=== PATIENT | male | born 1990 | race African-American/Black ===

== ENCOUNTER 2021-06-27 20:26 | Emergency (ER) | payer MEDICAID, SELFPAY ==
[2021-06-27 20:35] VITALS: BP 156/97; PULSE 71; RESP 16; TEMP 36.1; O2SAT 100
[2021-06-27 20:40] VITALS: BP 166/96; PULSE 64; RESP 18; TEMP 37.6; O2SAT 99
[2021-06-27 20:56] LABS: Basophils Percent Auto 0.3 % (0.2-1.2); Eosinophils Percent Auto 0.6 % (0-4.4); Hematocrit 42.6 % (42.0-52.0); Hemoglobin 14.6 g/dL (14.0-18.0); Immature Granulocyte Absolute 0.01 K/mm3 (0.00-0.031); Immature Granulocyte Percent A 0.1 % (0-0.5); Lymphocytes Absolute Auto 1.53 K/mm3 (0.9-3.2); Lymphocytes Percent Auto 22.5 % (18.3-44.2); Mean Corpuscular HGB Conc 34.3 g/dl (32-36); Mean Corpuscular Hemoglobin 26.7 pg (26-34); Mean Corpuscular Volume 77.9 fl (80-100); Mean Platelet Volume 9.7 fl (7.4-10.4); Monocytes Absolute Auto 0.5 K/mm3 (0.1-0.6); Monocytes Percent Auto 7.9 % (2.6-8.5); Neutrophils Absolute Auto 4.7 K/mm3 (1.3-6.7); Neutrophils Percent Auto 68.6 % (45.5-73.1); Platelet Count Result 279 k/mm3 (150-375); Red Blood Count 5.47 M/mm3 (4.6-6.20); Red Cell Distribution Width 13.8 % (11.5-14.5); White Blood Count 6.8 K/mm3 (4.5-10.0)
[2021-06-27] MEDS: Please add drug allergy info to patient profile. 1 EACH XX (20:59)
[2021-06-27] MEDS: ONDANSETRON INJ 4 MG/2 ML VIAL IV PUSH (20:59)
[2021-06-27] MEDS: SODIUM CHLORIDE 0.9% IV 1,000 ML 999 ML IV CONT (20:59)
[2021-06-27 21:04] LABS: Add Urine Microscopic? YES; Appearance Urine Clear (Clear); Bilirubin Urine Negative (Negative); Blood Urine Negative (Negative); Color Urine Straw (Yellow); Glucose Urine UA Negative (Negative); Ketones Urine Trace mg/dL (Negative); Leukocyte Esterase Ur Negative LEU/UL (Negative); Mucus Urine Rare /lpf; Nitrate Urine Negative (Negative); Protein Urine Negative (Negative); RBC Urine 0-2 /hpf (0-2); Squamous Epithelial Cell Urine Rare /hpf (Few); Urobilinogen Urine Negative mg/dL (<2.0); WBC Urine 0-3 /hpf
[2021-06-27 21:07] LABS: Specific Grav Ur 1.003 (1.001-1.035)
[2021-06-27 21:09] LABS: Alanine Aminotransferase 26 U/L (4-50); Albumin Level 4.3 g/dL (3.5-5.1); Alkaline Phosphatase 65 U/L (38-126); Anion Gap 5 mmol/L (8-16); Aspartate Amino Transferase 29 U/L (17-59); Bilirubin,Total 0.9 mg/dL (0.2-1.3); Blood Urea Nitrogen 10 mg/dL (9-20); Calcium 9.5 mg/dL (8.4-10.2); Carbon Dioxide 28 mmol/L (22-30); Chloride 105 mmol/L (98-107); Estimated CRCL calculation 129 ml/min; Estimated Glomerular Filt Rate > 60; Glucose 98 mg/dL (65-110); Lipase 29 U/L (23-300); Potassium 3.4 mmol/L (3.4-5.0); Sodium 138 mmol/L (137-145)
[2021-06-27 21:22] VITALS: BP 153/95; PULSE 60; RESP 18; O2SAT 99
--- NOTE | 2021-06-27 21:28 | ED.NAVMDI ---
HPI - Nausea/Vomiting/Diarrhea General Chief complaint: Nausea/Vomiting/Diarrhea Stated complaint: nausea/vomiting Time Seen by Provider: 06/27/21 20:43 Source: patient Mode of arrival: ambulatory Limitations: no limitations History of Present Illness HPI Narrative: 30-year-old with no major medical problems here with complaints of lower abdominal pain associated with nausea and vomiting for last 3 to 4 days. He denies any fever or chills. Denies any diarrhea. He states he has been eating fish for last 3 to 4 days. MD elicited complaint: nausea and vomiting Onset (ago): day(s) (4) Description of vomiting: watery and bilious Associated nausea: Yes Associated abdominal pain: Yes Location of pain: other (Lower abdominal pain) Pain consistency: intermittent Severity: mild Quality: aching Exacerbating factors: none Relieving factors: none Related Data Allergies Allergy/AdvReac Type Severity Reaction Status Date / Time No Known Allergies Allergy Verified 06/27/21 20:58 Review of Systems Review of Systems: All systems reviewed & are unremarkable except as noted in HPI and below Constitutional: Constitutional: Reports no additional constitutional complaints Eyes: Eyes: Reports no additional eye complaints ENT: Reports system reviewed and no additional complaints, except as documented Cardiovascular: Cardiovascular: Reports no additional cardiovascular complaints Respiratory: Respiratory: Reports no additional respiratory complaints Gastrointestinal: Gastrointestinal: Reports as per HPI Musculoskeletal: Musculoskeletal: Reports no additional musculoskeletal complaints Integumentary/Breasts: Skin/Breast: Reports system reviewed and no additional complaints, except as docu Exam Narrative: GENERAL: Well-appearing, well-nourished, and in no acute distress. HEAD: Normocephalic, atraumatic. EYES: PERRLA and EOMI.. NECK: Supple. CHEST: Clear to auscultation. No respiratory distress. HEART: Regular rate and rhythm. No murmur heard. Normal peripheral pulses. ABDOMEN: Soft, nontender, nondistended, normal active bowel sounds. EXTREMITIES: Normal range of motion. No edema. SKIN: Warm, dry, no rash. NEURO: No focal deficits. Alert and oriented x3. PSYCH: Normal mood and affect. Course Course Emergency Course: Patient feeling much better after IV fluid and Zofran. Informed him about his lab work. Advised him to take Zofran as needed drink plenty of fluids. Follow-up with his primary doctor. Vital Signs Vital signs: Vital Signs Temperature 36.1 C L 06/27/21 20:35 Pulse Rate 71 06/27/21 20:35 Respiratory Rate 16 06/27/21 20:35 Blood Pressure 156/97 H 06/27/21 20:35 Pulse Oximetry 100 06/27/21 20:35 Temperature 37.6 C 06/27/21 20:40 Pulse Rate 60 06/27/21 21:22 Respiratory Rate 18 06/27/21 21:22 Blood Pressure 153/95 H 06/27/21 21:22 Pulse Oximetry 99 06/27/21 21:22 MDM - Nausea/Vomiting/Diarrhea Differential Diagnosis Differential diagnosis: Likely food poisoning, gastroenteritis and dehydration Medical Records Attestation: I reviewed the patient's medical records. Lab Data Attestation: I reviewed the patient's lab results. Result diagrams: 06/27/21 20:50 06/27/21 20:50 Labs: Lab Results 06/27/21 06/27/21 06/27/21 Range/Units 20:50 20:50 20:56 WBC 6.8 (4.5-10.0) K/mm3 RBC 5.47 (4.6-6.20) M/mm3 Hgb 14.6 (14.0-18.0) g/dL Hct 42.6 (42.0-52.0) % MCV 77.9 L (80-100) fl MCH 26.7 (26-34) pg MCHC 34.3 (32-36) g/dl RDW 13.8 (11.5-14.5) % Plt Count 279 (150-375) k/mm3 MPV 9.7 (7.4-10.4) fl Immature Gran % (Auto) 0.1 (0-0.5) % Neut % (Auto) 68.6 (45.5-73.1) % Lymph % (Auto) 22.5 (18.3-44.2) % [place] % (Auto) 7.9 (2.6-8.5) % Eos % (Auto) 0.6 (0-4.4) % Baso % (Auto) 0.3 (0.2-1.2) % Lymph # (Auto) 1.53 (0.9-3.2) K/mm3 [place] # (Auto) 0.5 (0.1-0.6) K/mm3 Eos # (Auto)
== END 2021-06-27 21:46 | disposition home or self-care (01) ==
PROVIDERS: Emergency Provider Family Medicine
DX: R11.2 Nausea with vomiting, unspecified (principal)
CPT/HCPCS: 36415; 80053; 81001; 83690; 85025; 96374; 99284; J2405; J7030

== ENCOUNTER 2025-05-26 18:37 | Emergency (ER) | payer MEDICAID, OTHER, SELFPAY ==
[2025-05-26] VITALS (11 sets, daily range): BP systolic 146–151; BP diastolic 104–111; PULSE 54–64; RESP 11–18; TEMP 36.6; O2SAT 98–100
--- NOTE | 2025-05-26 20:30 | ECG_ITS ---
Test Date: 2025-05-26 20:55:05 Measurements Intervals [place] Rate: 58 P: 71 HI: 165 QRS: 79 QRSD: 91 T: 60 QT: 365 QTc: 359 Interpretive Statements SINUS BRADYCARDIA CANNOT R/O SEPTAL INFARCT, AGE INDETERMINATE ST ELEVATION IN ANTEROLAT/INF LEADS- PROBABLY EARLY REPOLARIZATION ABNORMALITY BASELINE ARTIFACT- I ABNORMAL ECG No previous ECG available for comparison Electronically Signed On 05-27-2025 06:27:57 CDT by Geovanni Zepeda D.O.
[2025-05-26 21:03] LABS: Hematocrit 40.9 % (42.0-52.0); Hemoglobin 13.4 g/dL (14.0-18.0); Immature Granulocyte Percent A 0.2 % (0-0.5); Lymphocytes Absolute Auto 1.42 K/mm3 (0.9-3.2); Mean Corpuscular HGB Conc 32.8 g/dl (32-36); Mean Corpuscular Hemoglobin 26.2 pg (26-34); Mean Corpuscular Volume 79.9 fl (80-100); Nucleated Red Blood Cells Absolute Auto 0.000 K/mm3 (0.0-0.012); Nucleated Red Blood Cells Perc 0.0 % (0.0-0.2); Platelet Count Result 232 k/mm3 (150-375); Red Blood Count 5.12 M/mm3 (4.6-6.20); White Blood Count 5.9 K/mm3 (4.5-10.0)
[2025-05-26 21:06] LABS: Add Urine Microscopic? NO; Appearance Urine Clear (Clear); Glucose Urine UA Negative (Negative); Leukocyte Esterase Ur Negative LEU/UL (Negative); Nitrate Urine Negative (Negative); Specific Grav Ur 1.018 (1.001-1.035)
[2025-05-26 21:17] LABS: INR 1.0; Prothrombin Time 13.4 Seconds (11.1-14.7)
[2025-05-26 21:18] LABS: Partial Thromboplastin Time 33.3 Seconds (22.3-36.8)
--- NOTE | 2025-05-26 21:22 | ECG_ITS ---
Test Date: 2025-05-26 21:22:30 Measurements Intervals [place] Rate: 53 P: 70 HI: 170 QRS: 76 QRSD: 93 T: 60 QT: 372 QTc: 351 Interpretive Statements SINUS BRADYCARDIA ST ELEVATION IN ANTEROLAT/INF LEADS- PROBABLY EARLY REPOLARIZATION BORDERLINE ECG Compared to ECG 05/26/2025 20:55:05 NO SIGNIFICANT CHANGE Electronically Signed On 05-27-2025 10:12:11 CDT by Geovanni Zepeda D.O.
[2025-05-26 21:28] LABS: Alanine Aminotransferase 24 U/L (6-50); Albumin Level 4.3 g/dL (3.5-5.1); Alkaline Phosphatase 78 U/L (38-126); Anion Gap 5 mmol/L (4-12); Aspartate Amino Transferase 34 U/L (17-59); Bilirubin,Total 0.6 mg/dL (0.2-1.3); Blood Urea Nitrogen 8 mg/dL (9-20); Calcium 9.3 mg/dL (8.4-10.2); Carbon Dioxide 26 mmol/L (22-30); Chloride 105 mmol/L (98-107); Estimated CRCL calculation 143 ml/min; Estimated Glomerular Filt Rate > 60; Glucose 97 mg/dL (65-110); Potassium 4.0 mmol/L (3.4-5.0); Sodium 136 mmol/L (137-145); Total Protein 7.4 g/dL (6.3-8.2)
[2025-05-26 21:39] LABS: Troponin I < 0.012 ng/mL (0.000-0.034)
[2025-05-26] MEDS: SODIUM CHLORIDE 0.9% IV 1,000 ML 999 ML IV CONT ×2 (22:16)
--- NOTE | 2025-05-26 22:16 | ED.DIZZY ---
HPI - Dizziness General Chief Complaint: Dizziness Stated Complaint: dizziness, hot flashes Time Seen by Provider: 05/26/25 21:36 History of Present Illness HPI Narrative: 34-year-old male with no pertinent past medical history presenting to the emergency department for evaluation of lightheadedness and dizziness. States he has been having intermittent symptoms for ?quite some time ?. Never got checked out. States he previously has been evaluated by wine bottle inspector and cleared from any cardiac anomalies after he fainted and had unexplained syncope about 10 years ago. Denies any new syncope or recurrence of those symptoms. States he had a headache that now resolved. No nausea, vomiting, fever, chills, vision changes, chest pain, shortness a breath. States he mostly just feels run down and feels like he could pass out if he gets up suddenly. Ambulatory with a steady gait. No generalized or focal weakness or sensory changes. Does not have a PCP. Related Data Allergies Allergy/AdvReac Type Severity Reaction Status Date / Time No Known Allergies Allergy Verified 05/26/25 18:38 Review of Systems Review of Systems: As reviewed above in HPI Exam Narrative: GENERAL: [Well-appearing, well-nourished, and in no acute distress.] HEAD: [Normocephalic, atraumatic.] EYES: [PERRLA and EOMI.] ENT: Nares clear, no rhinorrhea or epistaxis. Mucous membranes moist. NECK: Supple. CHEST: [Clear to auscultation. No respiratory distress.] HEART: [Regular rate and rhythm]. No murmur heard. [Normal peripheral pulses.] ABDOMEN: [Soft, nondistended], [nontender], [No rigidity or guarding] EXTREMITIES: Normal range of motion. [No edema.] SKIN: Warm, dry, no rash. NEURO: [No focal deficits]. Alert and oriented [x3.] PSYCH: [Normal mood and affect.] Course Vital Signs Vital signs: Vital Signs Temperature 36.6 C 05/26/25 18:51 Pulse Rate 64 05/26/25 18:51 Respiratory Rate 16 05/26/25 18:51 Blood Pressure 150/109 H 05/26/25 18:51 Pulse Oximetry 100 05/26/25 18:51 Oxygen Delivery Room Air 05/26/25 18:51 Temperature 36.6 C 05/26/25 18:51 Pulse Rate 60 10/16/25 22:17 Respiratory Rate 14 05/26/25 22:17 Blood Pressure 146/104 H 05/26/25 20:46 Pulse Oximetry 100 05/26/25 22:17 Oxygen Delivery Room Air 05/26/25 22:17 MDM - Dizziness MDM Narrative Medical decision making narrative: 34-year-old male with no pertinent past medical history presenting to the emergency department for evaluation of lightheadedness and dizziness. States he has been having intermittent symptoms for ?quite some time ?. Never got checked out. States he previously has been evaluated by wine bottle inspector and cleared from any cardiac anomalies after he fainted and had unexplained syncope about 10 years ago. Denies any new syncope or recurrence of those symptoms. States he had a headache that now resolved. No nausea, vomiting, fever, chills, vision changes, chest pain, shortness a breath. States he mostly just feels run down and feels like he could pass out if he gets up suddenly. Ambulatory with a steady gait. No generalized or focal weakness or sensory changes. Does not have a PCP. Patient is overall very well-appearing not any acute distress. Mildly elevated blood pressure, no tachycardia, fever, hypoxemia. Unremarkable neurological and neurovascular assessment. Strong symmetric pulses throughout. Clear breath sounds throughout. Normal neurological status. Patient's vague constellation symptoms could be numerous things including dehydration, electrolyte disturbances, thyroid issues, less likely cardiac anomalies. Broad workup ordered including EKG chest x-ray CBC CMP TSH. Patient placed on cardiac monitoring and he is given fluids. Laboratory studies showed no leukocytosis or significant anemia but is mildly low with a mildly low MCV which could be a sign of iron deficiency.. Normal platelet count. Normal coag studies. Mildly low sodium of 136. Normal electrolytes otherwise. Normal creatinine normal glucose. Normal LFTs. Negative troponin. Normal TSH. EKG shows J-point elevations diffusely consistent with benign early repolarization. No chest pain shortness a breath or anginal equivalents noted. Patient hydrated with fluids and discharged home with a PCP referral and return precautions. Medical Records Attestation: I reviewed the patient's medical records. Lab Data Attestation: I reviewed the patient's lab results. 05/26/25 20:49 05/26/25 20:49 Labs: Lab Results 05/26/25 Range/Units 20:49 WBC 5.9 (4.5-10.0) K/mm3 RBC 5.12 (4.6-6.20) M/mm3 Hgb 13.4 L (14.0-18.0) g/dL Hct 40.9 L (42.0-52.0) % MCV 79.9 L (80-100) fl MCH 26.2 (26-34) pg MCHC 32.8 (32-36) g/dl RDW 14.9 H (11.5-14.5) % Plt Count 232 (150-375) k/mm3 MPV 9.4 (7.4-10.4) fl Immature Gran % (Auto) 0.2 (0-0.5) % Neut % (Auto) 66.4 (45.5-73.1) % Lymph % (Auto) 24.1 (18.3-44.2) % [place] % (Auto) 7.3 (2.6-8.5) % Eos % (Auto) 1.5 (0-4.4) % Baso % (Auto) 0.5 (0.2-1.2) % Lymph # (Auto) 1.42 (0.9-3.2) K/mm3 [place] # (Auto) 0.4 (0.1-0.6) K/mm3 Eos # (Auto) 0.1 (0-0.3) K/mm3 Baso # (Auto) 0.0 (0.0-0.1) K/mm3 Abs Immat Gran (auto) 0.01 (0.00-0.031) K/mm3 Absolute Neuts (auto) 3.9 (1.3-6.7) K/mm3 Absolute Nucleated RBC 0.000 (0.0-0.012) K/mm3 Nucleated RBC % 0.0 (0.0-0.2) % PT 13.4 (11.1-14.7) Seconds INR 1.0 APTT 33.3 (22.3-36.8) Seconds Sodium 136 L (137-145) mmol/L Potassium 4.0 (3.4-5.0) mmol/L Chloride 105 (98-107) mmol/L Carbon Dioxide 26 (22-30) mmol/L Anion Gap 5 (4-12) mmol/L BUN 8 L (9-20) mg/dL Creatinine 0.80 (0.7-1.3) mg/dL Estim Creat Clear Calc 143 ml/min Estimated GFR > 60 (59 - ) Glucose 97 (65-110) mg/dL Calcium 9.3 (8.4-10.2) mg/dL Total Bilirubin 0.6 (0.2-1.3) mg/dL AST 34 (17-59) U/L ALT 24 (6-50) U/L Alkaline Phosphatase 78 (38-126) U/L Troponin I < 0.012 (0.000-0.034) ng/mL Total Protein 7.4 (6.3-8.2) g/dL Albumin 4.3 (3.5-5.1) g/dL TSH (Reflex) 2.110 (0.465-4.68) uIU/mL Urine Color Yellow (Yellow) Urine Appearance Clear (Clear) Urine pH 7.5 (5.0-9.0) Ur Specific [place] 1.018 (1.001-1.035) Urine Protein Negative (Negative) mg/dL Urine Glucose (UA) Negative (Negative) mg/dL Urine Ketones Negative (Negative) mg/dL Ur Blood (Man) Negative (Negative) Urine Nitrate Negative (Negative) Urine Bilirubin Negative (Negative) Urine Urobilinogen 1.0 (<2.0) mg/dL Leukocyte Esterase Rfl Negative (Negative) ASUNCION/UL Discharge Plan Discharge Clinical Impression: Mild anemia, Mild dehydration Patient Disposition: Home Condition: Stable Instructions: Antibiotic Form, Dizziness (ED), Anemia (ED) Additional Instructions: Your workup today shows a very mild level of anemia which could be a sign of iron deficiency as your other laboratory studies are also reassuring. You do have any mildly low sodium consistent with dehydration. We have given the fluid hydration here. Follow-up with a primary care provider for further workup and treatment options. Return with any emergent concerns. Patient Language: [place] Prescriptions: No Action ondansetron 4 mg tablet,disintegrating 4 mg PO Q6-8H PRN (Reason: nausea and vomiting) Qty: 14 0RF Follow-up/Referrals: PHYSICIAN,CONTENT PRODUCTION SPECIALIST [Primary Care Provider, Internal Medicine] Josie Sarah DO [Physician, Family Practice] - 1 Week Referral Note: PCP follow-up, anemia Time of Disposition: 23:20
[2025-05-26 22:56] LABS: Thyroid Stimulating Hormone Reflex 2.110 uIU/mL (0.465-4.68)
[2025-05-27 00:39] VITALS: BP 140/102; PULSE 58; RESP 16; TEMP 36.4; O2SAT 99
== END 2025-05-27 00:41 | disposition home or self-care (01) ==
PROVIDERS: Emergency Provider Student in an Organized Health Care Education/Training Program
DX: D64.9 Anemia, unspecified (principal); E86.0 Dehydration; R00.1 Bradycardia, unspecified; R94.31 Abnormal electrocardiogram [ECG] [EKG]
CPT/HCPCS: 36415; 80053; 81003; 84443; 84484; 85025; 85610; 85730; 93005; 96360; 99284; J7030